=== PATIENT | female | born 1990 | race Asian ===

== ENCOUNTER 2019-01-01 11:01 | Emergency (ER) | payer OTHER ==
[~2019-01-01] VITALS: Ht 154.9 cm; Wt 54.4 kg
[~2019-01-01 11:01] MED LIST: PRE-NATAL1 TAB PO
[2019-01-01 11:17] VITALS: Ht 154.9 cm; Wt 54.4 kg
[2019-01-01 12:18] LABS: CALCIUM 9.1 mg/dL (8.5-10.1); CHLORIDE SERUM 101 mmol/L (98-107); CREATININE SERUM 0.8 mg/dL (0.6-1.0); GFR1 > 60 mL/min; GLUCOSE SERUM 96 mg/dL (74-106); POTASSIUM SERUM 3.8 mmol/L (3.5-5.1); SODIUM SERUM 137 mmol/L (136-145)
[2019-01-01 12:23] LABS: ALBUMIN 3.9 g/dL (3.4-5.0); ALKALINE PHOSPHATASE 94 U/L (46-116); ALT/SGPT 21 U/L (14-59); AST/SGOT 19 U/L (15-37); BILIRUBIN TOTAL 0.39 mg/dL (0.20-1.00); TOTAL PROTEIN, SERUM 7.9 g/dL (6.4-8.2)
[2019-01-01 12:34] LABS: FREE T4 1.13 ng/dL (0.76-1.46); FREE THYROXINE INDEX 3.2 ug/dL (1.4-4.5); T4(THYROXINE) 8.7 ug/dL (4.7-13.3)
[2019-01-01 16:40] VITALS: BP 140/75
== END 2019-01-01 12:30 | disposition home or self-care (01) ==
LOC: ED 11:01
PROVIDERS: Specialist
DX: F41.9 Anxiety disorder, unspecified (principal); E03.9 Hypothyroidism, unspecified; Z88.0 Allergy status to penicillin
CPT/HCPCS: 84439

== ENCOUNTER 2019-02-26 21:54 | Emergency (ER) | payer OTHER ==
[~2019-02-26] VITALS: Ht 154.9 cm; Wt 55.8 kg
[2019-02-26 22:09] VITALS: Ht 154.9 cm; Wt 55.8 kg
[2019-02-27 01:02] VITALS: BP 128/71
== END 2019-02-27 01:02 | disposition home or self-care (01) ==
LOC: ED 21:54
DX: S92.531A Displaced fracture of distal phalanx of right lesser toe(s), initial encounter for closed fracture (principal); E03.9 Hypothyroidism, unspecified; Z88.0 Allergy status to penicillin; W20.8XXA Other cause of strike by thrown, projected or falling object, initial encounter; Y93.89 Activity, other specified; Y92.89 Other specified places as the place of occurrence of the external cause; Y99.8 Other external cause status

== ENCOUNTER → 2019-05-23 | Outpatient (CLI) | payer OTHER | END | disposition home or self-care (01) | LOC: RD 15:18 | DX: S92.531A Displaced fracture of distal phalanx of right lesser toe(s), initial encounter for closed fracture (principal); X58.XXXA Exposure to other specified factors, initial encounter; Y92.9 Unspecified place or not applicable ==

== ENCOUNTER → 2020-10-14 | Outpatient (CLI) | payer OTHER | END | disposition home or self-care (01) | LOC: LB 11:28 | PROVIDERS: ATTEND Obstetrics & Gynecology | DX: O20.0 Threatened abortion (principal) ==